=== PATIENT | male | born 1985 | race Caucasian/White ===

== ENCOUNTER 2016-08-30 11:58 | Emergency (ER) | payer MEDICAID, OTHER ==
[2016-08-30 12:05] VITALS: BP 138/80
[2016-08-30] MEDS ORDERED: IBUPROFEN 600 MG TABLET PO ONE (12:26)
[2016-08-30] MEDS ORDERED: IBUPROFEN 600 MG TABLET ONE (12:30)
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
== END 2016-08-30 12:52 | disposition home or self-care (01) ==
LOC: ER 11:58
PROC: 2W3EX1Z Immobilization of Right Hand using Splint (ICD-10-PCS; principal; 2016-08-30)
DX: M84.441A Pathological fracture, right hand, initial encounter for fracture (principal); Y04.0XXA Assault by unarmed brawl or fight, initial encounter; Y93.9 Activity, unspecified; Y92.9 Unspecified place or not applicable

== ENCOUNTER 2016-09-02 09:07 | Day surgery (SDC) | payer OTHER ==
[~2016-09-02 09:07] MED LIST: ACETAMINOPHEN 500 MG TABLET PO PRN; HYDROmorphone HCL 2 MG/ML VIAL IV PRN; MAG HYDROX/ALUMINUM HYD/SIMETH 30 ML UDC PO PRN; MAGNESIUM HYDROXIDE 30 ML UDC PO PRN; ONDANSETRON HCL/PF 2 MG/ML VIAL IV PRN; PROMETHAZINE HCL 25 MG in DEXTROSE 5 % IN WATER 50 ML IV PRN; RINGERS SOLUTION,LACTATED 1,000 ML IV PRN; ZOLPIDEM TARTRATE 5 MG TABLET PO PRN; ceFAZolin SODIUM 1 GM VIAL IV PRN; diphenhydrAMINE HCL 50 MG/ML VIAL IV PRN; oxyCODONE HCL/ACETAMINOPHEN 1 TAB TABLET PO PRN
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
[2016-09-02] MEDS ORDERED: RINGERS SOLUTION,LACTATED 1,000 ML IV ONE ×2 (09:15→11:17)
[2016-09-02] MEDS ORDERED: BUPIVACAINE HCL 50 ML VIAL IJ ONE ×2 (10:35)
[2016-09-02 13:35] VITALS: BP 115/67
[2016-09-02] MEDS ORDERED: SENNOSIDES/DOCUSATE SODIUM 1 TAB TABLET PO SCH (21:00)
== END 2016-09-02 09:08 | disposition home or self-care (01) ==
LOC: AMB 09:07
PROVIDERS: ATTEND Orthopaedic Surgery
PROC: 0PSP04Z Reposition Right Metacarpal with Internal Fixation Device, Open Approach (ICD-10-PCS; principal; 2016-09-02 10:15)
DX: S62.302A Unspecified fracture of third metacarpal bone, right hand, initial encounter for closed fracture (principal); S62.304A Unspecified fracture of fourth metacarpal bone, right hand, initial encounter for closed fracture; K21.9 Gastro-esophageal reflux disease without esophagitis; M79.7 Fibromyalgia; F41.9 Anxiety disorder, unspecified; Y04.8XXA Assault by other bodily force, initial encounter; F17.200 Nicotine dependence, unspecified, uncomplicated; Z68.25 Body mass index [BMI] 25.0-25.9, adult

== ENCOUNTER 2017-01-20 09:57 | Emergency (ER) | payer OTHER ==
[2017-01-20 10:13] VITALS: BP 129/74
[2017-01-20] MEDS ORDERED: KETOROLAC TROMETHAMINE 60 MG/2 ML VIAL IM ONE ×2 (10:36→10:44)
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
[2017-01-20 11:53] LABS: Urine Bilirubin Negative (NEGATIVE); Urine Blood Negative /ul (NEGATIVE); Urine Ketone Negative (NEGATIVE); Urine Nitrite Negative (NEGATIVE); Urine Protein 15 mg/dL (NEGATIVE); Urine Specific Gravity >=1.030 SP.GR. (1.005-1.030); Urine Urobilinogen Normal (NORMAL)
[2017-01-20 12:04] LABS: Urine Appearance Clear; Urine Color Yellow
[2017-01-20 12:05] LABS: Urine Bacteria 1+; Urine Mucus Moderate - 2+; Urine RBC 0-5 /hpf (0-5); Urine WBC 0-5 /hpf (0-5)
== END 2017-01-20 12:27 | disposition home or self-care (01) ==
LOC: ER 09:57
DX: S22.32XA Fracture of one rib, left side, initial encounter for closed fracture (principal); Y04.2XXA Assault by strike against or bumped into by another person, initial encounter; Y93.9 Activity, unspecified; Y92.89 Other specified places as the place of occurrence of the external cause; F17.200 Nicotine dependence, unspecified, uncomplicated